=== PATIENT | male | born 1960 | race Two or more races ===

== ENCOUNTER 2018-04-05 13:00 | Emergency (ER) | payer MEDICARE, MEDICAID ==
[~2018-04-05] VITALS: Ht 172.7 cm; Wt 68.0 kg
[~2018-04-05 13:00] MED LIST: AMBIEN5 MG ORAL; ASPIRIN81 MG NG; BENZTROPINE MESY2 MG ORAL; CLOZAPINE200 MG ORAL; COGENTIN2 MG ORAL; COLACE250 MG ORAL; DEPAKOTE500 MG ORAL; DOK100 M1 PO; FLAGYL500 MG ORAL; KLONOPIN0.5 MG ORAL; KLONOPIN1 MG ORAL; LEVOTHYROXINE100 MCG ORAL; LIPITOR10 MG ORAL; LUVOX CR100 MG ORAL; NEXIUM40 M1 ORAL; NEXIUM40 MG ORAL; NORCO 5-325 TA1 EACH ORAL; PROPRANOLOL HCL10 MG ORAL; ZOLPIDEM TARTRA10 MG ORAL
[2018-04-05 13:15] VITALS: BP 128/88
--- NOTE | 2018-04-05 13:20 | NUR ---
ED Nurse Note: pt brought in by LAFDanni R 30 c/o sorethroat and cough since today, pt skin warm and dry, resp even and unlabored on RA, no cough noted, will cont monitor.
--- NOTE | 2018-04-05 13:30 | NUR ---
ED Nurse Note: noted pt unable to stay awake, lethargic, will cont monitor. PA aware pt's condition.
[2018-04-05 14:15] VITALS: BP 110/69
[2018-04-05 14:15] LABS: BASOPHILS % (AUTO) 1.7 % (0.0-2.0); EOSINOPHILS % (AUTO) 2.3 % (0.0-3.0); HEMOGLOBIN 12.4 G/DL (14.2-18.0); LYMPHOCYTES % (AUTO) 28.7 % (20.0-45.0); MEAN CORPUSCULAR VOLUME 90 FL (80-99); MONOCYTES % (AUTO) 14.4 % (1.0-10.0); NEUTROPHILS % (AUTO) 52.9 % (45.0-75.0); PLATELET COUNT 213 K/UL (150-450); RED BLOOD COUNT 4.09 M/UL (4.70-6.10); RED CELL DISTRIBUTION WIDTH 12.5 % (11.6-14.8); WHITE BLOOD COUNT 11.2 K/UL (4.8-10.8)
[2018-04-05 14:24] LABS: ANION GAP 8 mmol/L (5-15); BLOOD UREA NITROGEN 24 mg/dL (7-18); CARBON DIOXIDE 27 MMOL/L (21-32); CHLORIDE 103 MMOL/L (98-107); CREATININE 0.9 MG/DL (0.55-1.30); POTASSIUM 3.9 MMOL/L (3.5-5.1); SODIUM 137 MMOL/L (136-145)
[2018-04-05 14:29] LABS: ALANINE AMINOTRANSFERASE 13 U/L (12-78); ALBUMIN 2.5 G/DL (3.4-5.0); ALBUMIN/GLOBULIN RATIO 0.6 (1.0-2.7); ALKALINE PHOSPHATASE 73 U/L (46-116); ASPARTATE AMINO TRANSFERASE 9 U/L (15-37); BILIRUBIN,TOTAL 0.2 MG/DL (0.2-1.0)
--- NOTE | 2018-04-05 15:08 | NUR ---
ED Nurse Note: pt off to CT.
[2018-04-05 15:15] VITALS: BP 108/69
--- NOTE | 2018-04-05 15:49 | Diagnostic Imaging Report ---
Indications: Altered mental status Technique: Spiral acquisitions obtained through the brain. Angled axial and coronal 5 x 5 mm slices were reconstructed. Total dose length product 1446.46 mGycm. CTDI vol(s) 70.38 mGy. Dose reduction achieved using automated exposure control Comparison: None. Findings: There is age-related enlargement of the ventricles and extra-axial CSF spaces. Normal casiano-white differentiation. No acute intracranial hemorrhage nor edema. No mass effect nor midline shift. The included orbits are unremarkable. There is bilateral ethmoid sinus mucosal disease. The mastoids are clear. The calvarium is intact. Impression: Mild age-related volume loss Negative for acute intracranial bleed or mass effect. The CT scanner at [facility] is accredited by the [employer] and the scans are performed using protocols designed to limit radiation exposure to as low as reasonably achievable to attain images of sufficient resolution adequate for diagnostic evaluation.
[2018-04-05 16:15] VITALS: BP 112/67
[2018-04-05] MEDS ORDERED: Naloxone 1mg/ml 2ml IM ONE ×2 (16:15→16:30)
[2018-04-05 17:15] VITALS: BP 116/73
--- NOTE | 2018-04-05 18:08 | NUR ---
ED Nurse Note: spoke with ZACHERY Thomas at [facility], per William statement, the facility called 911 for pt unable to stay awake and maintain loc this morning, pt had routine morning meds and the facility dispenses medication. PT now awake states he is ready to go back to the facility, able to stay awake but reports tired. will cont monitor. ER Provider notified.
--- NOTE | 2018-04-05 18:30 | NUR ---
ED Nurse Note: pt ambulated to restroom w/o assist, steady gait noted, pt given sandwich and juice, tolerated well wo difficulty, resp even and unlabored on RA, airway intact, vss. will cont monitor. Pt AA&ox4.
--- NOTE | 2018-04-05 19:42 | Emergency Room Report ---
History of Present Illness General Chief Complaint: Altered Level of Consciousness Source: EMS Present Illness HPI 57-year-old male presents to the emergency department with altered mental status. Patient is a poor historian and review of systems as well as history of present illness is limited due to alteration in mental status. He denies pain , Reports drinking 1 beer earlier today. Denies medical hx. Denies trauma or fall. Allergies: Coded Allergies: CODEINE (Unverified Allergy, Severe, 04/25/14) Patient History Past Medical History: see triage record, DM, psych hx Past Surgical History: none Pertinent Family History: none Social History: Reports: drug use - PCP, opiates Reviewed Nursing Documentation: PMH: Agreed; PSxH: Agreed Nursing Documentation-PMH Past Medical History: No History, Except For Hx Cardiac Problems: No Hx Cancer: No Hx Gastrointestinal Problems: Yes History Of Psychiatric Problem: Yes Hx Neurological Problems: No Hx Seizures: Yes Review of Systems All Other Systems: limited Physical Exam Vital Signs Date Time Temp Pulse Resp B/P (MAP) Pulse Ox O2 Delivery O2 Flow Rate FiO2 04/05/18 12:55 98.4 72 16 130/88 98 Room Air Sp02 EP Interpretation: reviewed, normal General Appearance: no apparent distress, alert, GCS 15, non-toxic Head: normocephalic, atraumatic Eyes: bilateral eye normal inspection, bilateral eye other - Pinpoint Pupils Bilaterally ENT: hearing grossly normal, normal voice Respiratory: chest non-tender, lungs clear, normal breath sounds, no respiratory distress, no accessory muscle use, no wheezing, speaking full sentences Cardiovascular #1: regular rate, rhythm, no edema, normal capillary refill Gastrointestinal: normal bowel sounds, non tender, soft Musculoskeletal: back normal, normal range of motion, non-tender Neurologic: responsive - to painful stimuli, pt. very lethargic , motor strength/tone normal, sensory intact, speech normal, grossly normal Psychiatric: mood/affect normal, no suicidal/homicidal ideation Skin: normal color, no rash, warm/dry, well hydrated Lymphatic: no adenopathy Medical Decision Making PA Attestation Dr. Zelaya is my supervising Physician whom patient management has been discussed with. Diagnostic Impression: Primary Impression: Altered level of consciousness Additional Impression: Drug side effects ER Course 57-year-old male presents to the emergency department with altered mental status. Patient is a poor historian and review of systems as well as history of present illness is limited due to alteration in mental status. He denies pain , Reports drinking 1 beer earlier today. Denies medical hx. Denies trauma or fall. Ddx considered but are not limited to hypo/hyper-glycemia, OD, Medication SE, ICH, Subdural hematoma, Mass Lesion, Encephalopathy just to name a few. Vital signs: are WNL, pt. is afebrile H&PE are most consistent with pt. presenting with AMS. - documentation from [facility] shows psych hx. ---Pt. has significant pin-point pupils and is not arousable with sternal rub on subsequent re-evaluation ORDERS: -CBC: unremarkable -CMP: unremarkable -ETOH: WNL -UDS: Negative AccuCheck: 96 -CT Head No contrast: WNL ED INTERVENTIONS: -Narcan 0.5, and 0.75- Notable improvement of alterness and ability to converse / answer questions. --Contact was made with nursing facility. pt. received Invega ( psych med) injection yesterday and took regularly rx'd medications: Levothyroxine, Cogentin , Remeron, Depakote, Rexulti, Clozaril -- facility notes increased lethargy shortly after. -Observation here in the ED, Pt. continues to be Alert and answers questions and follows commands. Denies SI/HI -I do not identify an emergent condition at this time. With current presentation , pt. is stable for close outpatient follow up and conservative treatment. D/ w pt. to return promptly to ED with worsening or new symptoms.- Pt. verbalizes' understanding and agreement with proposed treatment plan.proposed treatment plan. *Pt. will require Medication Reconciliation and re-evaluation by Psychiatrist. DISCHARGE: At this time pt. is stable for d/c to home. Will provide printed patient care instructions, and any necessary prescriptions. Care plan and follow up instructions have been discussed with the patient prior to discharge. Labs Test 04/05/18 13:50 04/05/18 15:40 White Blood Count 11.2 K/UL (4.8-10.8) Red Blood Count 4.09 M/UL (4.70-6.10) Hemoglobin 12.4 G/DL (14.2-18.0) Hematocrit 37.0 % (42.0-52.0) Mean Corpuscular Volume 90 FL (80-99) Mean Corpuscular Hemoglobin 30.3 PG (27.0-31.0) Mean Corpuscular Hemoglobin Concent 33.5 G/DL (32.0-36.0) Red Cell Distribution Width 12.5 % (11.6-14.8) Platelet Count 213 K/UL (150-450) Mean Platelet Volume 7.4 FL (6.5-10.1) Neutrophils (%) (Auto) 52.9 % (45.0-75.0) Lymphocytes (%) (Auto) 28.7 % (20.0-45.0) Monocytes (%) (Auto) 14.4 % (1.0-10.0) Eosinophils (%) (Auto) 2.3 % (0.0-3.0) Basophils (%) (Auto) 1.7 % (0.0-2.0) Sodium Level 137 MMOL/L (136-145) Potassium Level 3.9 MMOL/L (3.5-5.1) Chloride Level 103 MMOL/L (98-107) Carbon Dioxide Level 27 MMOL/L (21-32) Anion Gap 8 mmol/L (5-15) Blood Urea Nitrogen 24 mg/dL (7-18) Creatinine 0.9 MG/DL (0.55-1.30) Estimat Glomerular Filtration Rate > 60 mL/min (>60) Glucose Level 93 MG/DL (74-106) Calcium Level 9.0 MG/DL (8.5-10.1) Total Bilirubin 0.2 MG/DL (0.2-1.0) Aspartate Amino Transf (AST/SGOT) 9 U/L (15-37) Alanine Aminotransferase (ALT/SGPT) 13 U/L (12-78) Alkaline Phosphatase 73 U/L (46-116) Total Protein 6.5 G/DL (6.4-8.2) Albumin 2.5 G/DL (3.4-5.0) Globulin 4.0 g/dL Albumin/Globulin Ratio 0.6 (1.0-2.7) Serum Alcohol < 3 mg/dL Urine Opiates Screen Negative (NEGATIVE) Urine Barbiturates Screen Negative (NEGATIVE) Phencyclidine (PCP) Screen Negative (NEGATIVE) Urine Amphetamines Screen Negative (NEGATIVE) Urine Benzodiazepines Screen Negative (NEGATIVE) Urine Cocaine Screen Negative (NEGATIVE) Urine Marijuana (THC) Screen Negative (NEGATIVE) CT/MRI/US Diagnostic Results CT/MRI/US Diagnostic Results : Imaging Test Ordered: CT HEad No Contrast Impression "No evidence of acute fracture, hemorrhage, or intracranial process " Per official radiology report- Please see report for specific details. Last Vital Signs Date Time Temp Pulse Resp B/P (MAP) Pulse Ox O2 Delivery O2 Flow Rate FiO2 04/05/18 18:59 72 18 Room Air 04/05/18 17:15 98.0 116/73 98 Status: improved - alertness improved significantly Disposition: HOME, SELF-CARE Condition: Stable Referrals: Pb Ceballos MD (PCP) Patient Instructions: Altered Mental Status Additional Instructions: Follow up with a Mental Health Specialist/ Psychiatrist in 3 days, even if your symptoms have resolved. Return sooner to ED if new symptoms occur, or current symptoms become worse. - Please note that this Emergency Department Report was dictated using [email or web address] technology software, occasionally this can lead to erroneous entry secondary to interpretation by the dictation equipment. Bethany Maguire Apr 05, 2018 19:42
--- NOTE | 2018-04-05 20:15 | NUR ---
ED Nurse Note: pt cleared to be d/c per ER provider, report given to William from the facility and given report to amb personnel, pt advised to follow up pcp/psychiatrist regarding possible side effect of meds per ER provider statement, pt discharge/aftercare instruction provided, pt advised to return to ed if sx worsen or new sx develop, ambulance personnel verbalized understanding and pt verbalize understanding and agrees with plan, vss, airway intact, resp even and unlabored, all belongings left w/ pt. pt was given sandwich and juice, ambulatory w/ steady gait.
[2018-04-05 21:10] VITALS: BP 105/67
== END 2018-04-05 21:10 | disposition home or self-care (01) ==
LOC: EDBD 13:00 → EMR 13:45
DX: R41.82 Altered mental status, unspecified (principal); T50.905A Adverse effect of unspecified drugs, medicaments and biological substances, initial encounter; Z88.5 Allergy status to narcotic agent
CPT/HCPCS: 36415; 70450; 80053; 80307; 85025; 96372; 99283; G0480; J2310; 80329